=== PATIENT | male | born 1990 | race Caucasian/White ===

== ENCOUNTER 2016-04-07 18:34 | Emergency (ER) | payer SELFPAY ==
[~2016-04-07] VITALS: Ht 175.3 cm; Wt 67.7 kg
[2016-04-07 18:43] VITALS: TEMP 37; Ht 175.3 cm; Wt 67.7 kg
[2016-04-07 19:12] VITALS: O2SAT 97
[2016-04-07 19:31] LABS: BASO % 0.1 %; BASO ABS # 0.01 K/uL (0-0.2); COMPLETE YES; EOS % 2.8 %; HEMATOCRIT 46.5 % (42-52); IG% 0.1 %; LYMPH % 19.9 %; LYMPH ABS # 1.44 K/uL (1.2-3.4); MEAN CORPUSCULAR HEMOGLOBIN 30.2 pg (25-34); MEAN CORPUSCULAR HGB CONC 35.5 g/dl (32-36); MEAN PLATELET VOLUME 10.7 fL (7.4-10.4); MONO % 8.7 %; NEUT % 68.4 %; PLATELET COUNT 221 K/uL (130-400); RED BLOOD COUNT 5.47 M/uL (4.7-6.1); WHITE BLOOD COUNT 7.22 K/uL (4.8-10.8)
[2016-04-07 19:47] LABS: BLOOD UREA NITROGEN 15 mg/dl (7-18); BUN/CREATININE RATIO 14.6 (10-20); CALCIUM 9.1 mg/dl (8.5-10.1); CARBON DIOXIDE 28 mmol/L (21-32); CHLORIDE 105 mmol/L (98-107); GLUCOSE 102 mg/dl (70-99); POTASSIUM 3.4 mmol/L (3.5-5.1); SODIUM 142 mmol/L (136-145)
--- NOTE | 2016-04-07 20:01 | DIAGNOSTIC IMAGING REPORT ---
CHEST ONE VIEW PORTABLE CLINICAL HISTORY: Left-sided chest pain. COMPARISON STUDY: No previous studies for comparison. FINDINGS: No pneumothorax or pleural effusion is present. The patient is rotated. There is no consolidation. Cardiac size is normal. Mediastinal contours are normal. There is no evidence of pulmonary edema. IMPRESSION: No acute cardiopulmonary findings. Electronically signed by: Dereje Hemphill M.D. 04/07/2016 8:00 PM Dictated Date/Time: 04/07/2016 7:59 PM
[2016-04-07 21:45] VITALS: BP 109/72; PULSE 78; O2SAT 97
--- NOTE | 2016-04-08 00:10 | EMERGENCY ROOM VISIT NOTE ---
History Report prepared by Stephen: Arnulfo Gregory Under the Supervision of: Dr. Robert Alvarez D.O. First contact with patient: 18:53 Chief Complaint: CHEST PAIN Stated Complaint: CHEST PAIN,SOB Nursing Triage Summary: c/o SOB. reports chest pain last night with SOB. difficulty with deep breathing History of Present Illness The patient is a 25 year old male who presents to the Emergency Room with complaints of waxing and waning left sided chest pain beginning one day prior to arrival. He currently rates his discomfort as a 6/10 in severity. The patient associates shortness of breath and chest pain that radiates to his back with today's symptoms. He notes deep breathing and movement worsens his symptoms. The patient states the chest pain began last night with shortness of breath, while he was sitting on the couch watching TV. He notes it continued through the night and into today, however, the pain has decreased some. The patient states he took ibuprofen prior to coming to the ED today. He also associates a rash on his abdomen that he has been treating with antibiotic ointment for the past several days. The patient denies a history of heart problems, blood clots, recent surgeries, recent long travel, being a smoker, and history of sudden at a young age in his family. Also denies diabetes , hypertension, and hyperlipidemia. Pt denies headache, change in vision, cough , runny nose, fevers, nausea, vomiting, diarrhea, pain with urination, and melena. Source of History: patient Onset: one day C[employer] Position: chest (left) Symptom Intensity: 6/10 Timing: waxes/wanes Modifying Factors (Worsening): breathing (deep), movement Associated Symptoms: + SOB, + back pain (chest pain radiates to back), + chest pain Review of Systems See HPI for pertinent positives & negatives. A total of 10 systems reviewed and were otherwise negative. Past Medical & Surgical Medical Problems: (1) No pertinent past medical history Family History Patient reports no known family medical history. Social History Smoking Status: Never Smoker Alcohol Use: occasionally Occupation Status: employed Current/Historical Medications No Active Prescriptions or Reported Meds Allergies Coded Allergies: No Known Allergies (Unverified , 05/12/15) Physical Exam Vital Signs Date Time Temp Pulse Resp B/P Pulse Ox O2 Delivery O2 Flow Rate FiO2 04/07/16 21:45 78 18 109/72 97 04/07/16 20:31 71 16 97 Room Air 04/07/16 19:28 70 04/07/16 19:12 97 Room Air 04/07/16 19:00 Room Air 04/07/16 18:43 37.0 89 17 127/88 97 Room Air Physical Exam GENERAL: sitting up in bed, alert, well appearing, well nourished, no distress, non-toxic EYE EXAM: normal conjunctiva OROPHARYNX: no exudate, no erythema, lips, buccal mucosa, and tongue normal and mucous membranes are moist NECK: supple, no nuchal rigidity, no adenopathy, non-tender LUNGS: Clear to auscultation. Normal chest wall mechanics HEART: no murmurs, S1 normal and S2 normal ABDOMEN: abdomen soft, non-tender, normo-active bowel sounds, no pulsatile masses, no rebound or guarding. BACK: Back is symmetrical on inspection and there is no deformity, no midline tenderness, no CVA tenderness. SKIN: no rashes and no bruising UPPER EXTREMITIES: upper extremities are grossly normal. Radial pulses equal bilaterally. LOWER EXTREMITIES: No pitting edema. NEURO EXAM: Normal sensorium, cranial nerves II-XII grossly intact, normal speech, no gross weakness of arms, no gross weakness of legs. Medical Decision & Procedures ER Provider Diagnostic Interpretation: Xray results per the radiologist and my interpretation. Other results have been interpreted by the radiologist and reviewed by me. CHEST ONE VIEW PORTABLE CLINICAL HISTORY: Left-sided chest pain. COMPARISON STUDY: No previous studies for comparison. FINDINGS: No pneumothorax or pleural effusion is present. The patient is rotated. There is no consolidation. Cardiac size is normal. Mediastinal contours are normal. There is no evidence of pulmonary edema. IMPRESSION: No acute cardiopulmonary findings. Electronically signed by: Dereje Hemphill M.D. 04/07/2016 8:00 PM Laboratory Results 04/07/16 18:35 Red Blood Count 5.47, Mean Corpuscular Volume 85.0, Mean Corpuscular Hemoglobin 30.2, Mean Corpuscular Hemoglobin Concent 35.5, Mean Platelet Volume 10.7, Neutrophils (%) (Auto) 68.4, Lymphocytes (%) (Auto) 19.9, Monocytes (%) (Auto) 8.7, Eosinophils (%) (Auto) 2.8, Basophils (%) (Auto) 0.1, Neutrophils # (Auto) 4.93, Lymphocytes # (Auto) 1.44, Monocytes # (Auto) 0.63, Eosinophils # (Auto) 0.20, Basophils # (Auto) 0.01 04/07/16 18:35 Test 04/07/16 18:35 White Blood Count 7.22 K/uL (4.8-10.8) Red Blood Count 5.47 M/uL (4.7-6.1) Hemoglobin 16.5 g/dL (14.0-18.0) Hematocrit 46.5 % (42-52) Mean Corpuscular Volume 85.0 fL (80-100) Mean Corpuscular Hemoglobin 30.2 pg (25-34) Mean Corpuscular Hemoglobin Concent 35.5 g/dl (32-36) Platelet Count 221 K/uL (130-400) Mean Platelet Volume 10.7 fL (7.4-10.4) Neutrophils (%) (Auto) 68.4 % Lymphocytes (%) (Auto) 19.9 % Monocytes (%) (Auto) 8.7 % Eosinophils (%) (Auto) 2.8 % Basophils (%) (Auto) 0.1 % Neutrophils # (Auto) 4.93 K/uL (1.4-6.5) Lymphocytes # (Auto) 1.44 K/uL (1.2-3.4) Monocytes # (Auto) 0.63 K/uL (0.11-0.59) Eosinophils # (Auto) 0.20 K/uL (0-0.5) Basophils # (Auto) 0.01 K/uL (0-0.2) RDW Standard Deviation 40.1 fL (36.4-46.3) RDW Coefficient of Variation 12.9 % (11.5-14.5) Immature Granulocyte % (Auto) 0.1 % Immature Granulocyte # (Auto) 0.01 K/uL (0.00-0.02) D-Dimer 210 ug/L FEU (0-500) Anion Gap 9.0 mmol/L (3-11) Est Creatinine Clear Calc Drug Dose 107.2 ml/min Estimated GFR () 119.9 Estimated GFR (Non- 103.4 BUN/Creatinine Ratio 14.6 (10-20) Calcium Level 9.1 mg/dl (8.5-10.1) Troponin I < 0.015 ng/ml (0-0.045) Laboratory results per my review. ECG Indication: chest pain Rate (beats per minute): 84 Rhythm: sinus rhythm Findings: no ectopy, other (normal axis) ED Course ED COURSE: Vital signs were reviewed and showed normal vitals. The patients medical record was reviewed The above diagnostic studies were performed and reviewed. ED treatments and interventions as stated above. 0: The patient was evaluated in room C2B. A complete history and physical examination was performed. 2107: Upon reevaluation, the patient is doing well.I discussed my findings with the patient and he understands and agrees with the treatment plan. Based on the patients age, coexisting illnesses, exam and lab findings the decision to treat as an outpatient was made. The patient remained stable while under my care. The patient appeared well at the time of discharge. Medical Decision Differential diagnoses includes but is not limited to acute coronary syndrome, myocardial infarction, pericarditis, pulmonary embolus, aortic dissection, pneumonia, pneumothorax, musculoskeletal, shingles, esophageal. Patient is a 25-year-old male who presents the ER for left-sided chest pain which is been present since last night. He notes that is worse with twisting turning bending of breathing. He is a low risk for PEs. No cardiac risk factors. EKG was unremarkable. Chest x-ray was unremarkable. CBC along with BMP and d-dimer unremarkable. Troponin was negative. With his history of favor this is likely muscle skeletal especially with unremarkable EKG and negative d-dimer and troponin with chest pain that has been present for greater than 8 hours. He is instructed take Motrin Tylenol as needed and follow-up as an outpatient with PCP. Discussed with Pt concerning signs and symptoms to watch out for. Pt was instructed to follow up with their PCP and discussed with the patient their option to return to the ED at anytime for persistent or worsening symptoms. The appropriate anticipatory guidance and out-patient management, including indications for return to the emergency department, were explained at length to the patient and understood. Impression Primary Impression: Left sided chest pain Scribe Attestation The scribe's documentation has been prepared under my direction and personally reviewed by me in its entirety. I confirm that the note above accurately reflects all work, treatment, procedures, and medical decision making performed by me. Departure Information Dispostion Home / Self-Care Prescriptions No Active Prescriptions or Reported Meds Referrals No Doctor, Assigned (PCP) Forms HOME CARE DOCUMENTATION FORM, IMPORTANT VISIT INFORMATION Patient Instructions Chest Pain - [facility], [facility] Additional Instructions Please follow up with your primary care doctor with in the next 24 hours. Any worsening of your symptoms, please return to the ED immediately. This includes fevers greater than 100.4, passing out, worsening chest pain, coughing up blood , or any other concerning signs or symptoms from your standpoint. Please take Motrin Tylenol as needed for pain. Please excuse the patient as he was seen in the ER on 04/07/2016 from work.
== END 2016-04-07 21:47 | disposition home or self-care (01) ==
LOC: C.EDB 18:34 → C.EDC 21:47
DX: R07.9 Chest pain, unspecified (principal)

== ENCOUNTER 2017-03-22 21:31 | Emergency (ER) | payer BC ==
[~2017-03-22] VITALS: Ht 175.3 cm; Wt 55.5 kg
[2017-03-22 21:42] VITALS: BP 131/77; PULSE 97; TEMP 36.7; O2SAT 99; Ht 175.3 cm; Wt 55.5 kg
[2017-03-22] MEDS ORDERED: BACITRACIN OINT 15 GM TUBE EXT ONE (22:00)
[2017-03-22] MEDS ORDERED: SEPTRA DS HOME PACK 1 EA VIAL PO ONE (22:00)
[2017-03-22] MEDS ORDERED: CEPHALEXIN 500MG HOME PACK 1 EA BTL PO ONE (22:00)
[2017-03-22] MEDS ORDERED: SULF800T23 PO ×2 (22:03→22:12)
[2017-03-22] MEDS ORDERED: CEPH500C PO ×2 (22:03→22:12)
--- NOTE | 2017-03-24 00:06 | EMERGENCY ROOM VISIT NOTE ---
History First contact with patient: 21:47 Chief Complaint: RASH Stated Complaint: RASH ON STOMACH History of Present Illness The patient is a 26 year old male who presents to the Emergency Room with complaints of rash on his lower abdomen that has been intermittently occurring for the past one to 2 years. The patient evidently has a past history of large ureteral calculi, and required an open abdominal surgery 9 years ago to retrieve obstructing stones. The patient has not had persisting or stones, but states that every now and then his skin around the wound will become red and sore. The patient states most of the time this is across his pant line and belt buckle. The patient is required to wear specific pants and belt as part of his work uniform. He states over the past one to 2 days she has had a recurrence of his symptoms. He has not had drainage or discharge. No fever or chills. He rates his discomfort a 4/10. He has not taken anything over-the- counter. Review of Systems More than 10 systems were reviewed and otherwise negative with the exception of history of present illness. Past Medical/Surgical History Medical Problems: (1) No pertinent past medical history Family History Patient reports no known family medical history. Social History Smoking Status: Never Smoker Alcohol Use: occasionally Occupation Status: employed Current/Historical Medications Scheduled Cephalexin Monohydrate (Keflex), 500 MG PO TID Sulfamethoxazole-Trimethoprim (Bactrim Ds 800MG/160MG), 1 TAB PO BID Physical Exam Vital Signs Date Time Temp Pulse Resp B/P (MAP) Pulse Ox O2 Delivery O2 Flow Rate FiO2 03/22/17 21:42 36.7 97 18 131/77 99 Room Air Physical Exam VITALS: Vitals are noted on the nurse's note and reviewed by myself. Vital signs stable. GENERAL: Well-developed, well-nourished, white male, who is in no acute distress and resting comfortably. Patient is cooperative HEART: Regular rate and rhythm without murmurs gallops or rubs. LUNGS: Clear to auscultation bilaterally without wheezes, rales or rhonchi. No retractions or accessory muscle use. ABDOMEN: Positive normal bowel sounds x 4. Soft, nontender, without masses or organomegaly. No guarding or rebound tenderness. There is erythema and edema across the very lower aspect of the abdomen in the suprapubic region. There is a vertical well-healed surgical incision through this area. The erythema and edema appears consistent with cellulitis, roughly measuring 7 x 5 cm in dimension. There is no distinct abscess or drainage for culture. MUSCULOSKELETAL: No muscle atrophy, erythema, or edema noted. Full range of motion without joint tenderness in all extremities. Medical Decision & Procedures Medications Administered Medications (Trade) Dose Ordered Sig/Cain Route Start Time Stop Time Status Last Admin Dose Admin Trimethoprim/ Sulfamethoxazole (Sulfameth/ Trimeth Ds 800/ 160MG Home Pack) 1 homepack UD ONCE PO 03/22/17 22:00 03/22/17 22:01 DC 03/22/17 22:11 1 HOMEPACK Cephalexin Monohydrate (Keflex 500MG Home Pack) 1 homepack NOW ONCE PO 03/22/17 22:00 03/22/17 22:01 DC 03/22/17 22:11 1 HOMEPACK Bacitracin (Bacitracin Oint) 1 appln NOW ONCE EXT 03/22/17 22:00 03/22/17 22:01 DC 03/22/17 22:10 1 APPLN ED Course Physical exam and history were performed. Nursing notes, EMR, and Medication List were personally reviewed. Patient appears to have an abdominal wall cellulitis in the very low abdomen roughly in the belt line. He likely has some excoriation from his work uniform that is controlled bleeding to this, causing an acute cellulitis. He does not seem to have an abscess at this time, and there is no drainage or discharge otherwise. The patient will be started on a course of Bactrim and Keflex. His first doses were provided here in the department. I do have concern regarding the anatomic location of the infection, as it lies around a previous surgical incision. I recommended the patient follow up with his surgeon for a recheck, and if he is not able to do that, he can follow with general surgery locally. I do not feel that he has a deep infection at this time, but this was discussed as a possibility. The patient was pleased with plan and voiced understanding. He rated his discomfort a 0/10 at the time of departure. The chart was completed utilizing [employer] Voice Recognition Software. Grammatical errors, random word insertions, pronoun errors, and incomplete sentences are an occasional consequence of this system due to software limitations, ambient noise, and hardware issues. Any formal questions or concerns about the content, text, or information contained within the body of this dictation should be directly addressed to the provider for clarification. . Medical Decision Differential diagnosis: Etiologies such as cellulitis, abscess, MRSA infection, DVT, necrotizing fasciitis, dermatitis, drug eruption, as well as others were entertained.. Impression Primary Impression: Abdominal wall cellulitis Departure Information Dispostion Home / Self-Care Condition GOOD Prescriptions Cephalexin Monohydrate (Keflex) 500 Mg Cap 500 MG PO TID for 9 Days, #27 CAP . Prov: Tal Rudd PA-C 03/22/17 Sulfamethoxazole-Trimethoprim (Bactrim Ds 800MG/160MG) 1 Tab Tab 1 TAB PO BID for 9 Days, #18 TAB . Prov: Tal Rudd PA-C 03/22/17 Referrals Faisal Cardoza M.D. Forms HOME CARE DOCUMENTATION FORM, IMPORTANT VISIT INFORMATION Patient Instructions [facility] Additional Instructions You were seen and evaluated today on an emergency basis only. This is not a substitute for, or an effort to provide, complete comprehensive medical care. It is not possible to recognize and treat all injuries or illnesses in a single emergency department visit. For this reason it is recommended that you followup with your primary care physician or general surgery, Dr. Cardoza's office, for recheck next week. Call to make an appointment on Friday. For baseline pain relief you may alternate ibuprofen and acetaminophen every 4 hours for pain control. Take 600 mg ibuprofen (Advil) and then 4 hours later take 1000 mg acetaminophen (Tylenol). Do not take more than 3000 mg acetaminophen in a single day. Trimethoprim-Sulfamethoxazole(Bactrim DS): Take one pill twice daily for 10 days for your skin infection. All antibiotics can cause diarrhea. If this occurs and you feel worse or it does not resolve in 1-2 days follow up with your doctor or return to the Emergency Department as this could be signs of serious underlying problems. Any medication can cause an allergic reaction, stop the pills immediately and return to the ER for rash, hives, breathing difficulties, or swelling. Cephalexin(Keflex) 500mg: Take one pill 3 times daily for 10 days for your skin infection. All antibiotics can cause diarrhea. If this occurs and you feel worse or it does not resolve in 1-2 days follow up with your doctor or return to the Emergency Department as this could be signs of serious underlying problems. Any medication can cause an allergic reaction, stop the pills immediately and return to the ER for rash, hives, breathing difficulties, or swelling. Apply bacitracin antibiotic ointment twice daily for the next 5-7 days You are welcome to return to the emergency department anytime with new, worsening, or concerning symptoms.
== END 2017-03-22 22:22 | disposition home or self-care (01) ==
LOC: C.EDB 21:32 → C.EDD 22:22
DX: L53.9 Erythematous condition, unspecified (principal); R19.09 Other intra-abdominal and pelvic swelling, mass and lump; Z87.442 Personal history of urinary calculi; Z98.890 Other specified postprocedural states

== ENCOUNTER 2022-06-11 04:59 | Inpatient (IN) ==
[2022-06-11] MEDS ORDERED: ONDANSETRON INJ 2 MG/ML 2 ML VIAL IV STA ×2 (06:33→09:34)
[2022-06-11] MEDS ORDERED: SODIUM CHLORIDE 0.9% 1000ML 1,000 ML IV ONE ×2 (06:33→10:30)
[2022-06-11] MEDS ORDERED: ACETAMINOPHEN 1,000 MG/100 ML VIAL IV STA (06:36)
--- NOTE | 2022-06-11 06:38 | Emergency Department Note ---
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 are seen. The cardiomediastinal silhouette is normal. The chace gs are clear. No evidence of pleural effusion or pneumothorax. IMPRESSION: No acute abnormalities and in particular no radiographic evidence of pneumonia. ACT 112: Negative or not required by law. Electronically signed by: Sukhi Real M.D. 06/11/2022 7:42 AM Abdomen/Pelvis CT 06/11/22 06:32 CT abd pelvis IV con only CLINICAL HISTORY: abd pain, N/V TECHNIQUE: Helical axial images of the abdomen and pelvis were obtained and displayed. Automated dose lowering techniques and/or adjustment according to patient size were utilized for this exam. This exam was performed with intravenous contrast. CT DOSE: 1033.52 mGy.cm COMPARISON: None available at the time of this dictation. FINDINGS: Lower chest: Bibasilar atelectasis versus scarring is seen. Liver: Unremarkable. No focal lesions are seen. Gallbladder and biliary tree: No calcified gallstones. Normal caliber wall. No intra- or extrahepatic biliary ductal dilation. Pancreas: Unremarkable, no focal lesions. Spleen: Unremarkable. Adrenals: Unremarkable. Kidneys and ureters: Prominent left hydronephrosis and hydroureter is seen. Multiple stones are noted in the distal ureter however no frankly obstructive stone is definitely seen. Nonobstructive stones are also seen in the left collecting system. Bladder: Unremarkable. Reproductive organs: Unremarkable. Bowel: The appendix is normal. A small hiatal hernia is seen. A duodenal diverticulum is seen. Lymph nodes Retroperitoneal: Unremarkable. Pelvic: Unremarkable. Mesenteric: Unremarkable. Peritoneum: Normal. Vessels: Unremarkable. Abdominal wall: Unremarkable. Bones: Unremarkable. IMPRESSION: No acute abnormality to explain diffuse abdominal pain, in particular no evidence of bowel obstruction or appendicitis. Left hydronephrosis and hydroureter appear chronic with multiple stones which do not appear definitely obstructive. Correlation with outside imaging, if available, is recommended. Additional findings are as above. ACT 112: Negative or not required by law. Electronically signed by: Sukhi Real M.D. 06/11/2022 7:[address] 06/11/22 06:33 CT head/brain wo con CLINICAL HISTORY: 32 years-old Male with frontal OTERO/sinus pressure. Acute headache TECHNIQUE: Multiple axial CT images of the head were obtained without contrast. A dose lowering technique was utilized adhering to the principles of ALARA. COMPARISON: 06/28/2011 FINDINGS: No acute intracranial hemorrhage, midline shift, intracranial mass, hydrocephalus, territorial ischemia or abnormal extra-axial collection. Calcifications of the falx cerebri. The calvarium is intact. Mastoid air cells are generally clear. Mild mucosal thickening of the ethmoid air cells and inferior right frontal sinus with partial opacification of the nasal turbinates. Left nephrolithiasis noted on the tomogram. IMPRESSION: 1. No acute intracranial abnormality. 2. Mild mucosal thickening of the paranasal sinuses. ACT 112: Negative or not required by law. The above report was generated using voice recognition software. It may contain grammatical, syntax or spelling errors. Electronically signed by: Xiang Zamudio M.D. 06/11/2022 7:48 AM Discharge Plan Visit Data Chief Complaint: Flu Like Symptoms Stated Complaint: COUGH ON/OFF,VOMITING,HOT/COLD,SHAKING,SINUS ED Provider: Faisal Harris Discharge Problem: Neutropenia Patient Disposition: Admitted As Inpatient Discharge Instructions Interventions: ED Discharge Assessment Last Done: 06/11/22 11:25 Forms Stand Alone Forms: NI Prescriptions Prescriptions: No Action penicillin V potassium 500 mg tablet 500 mg PO TID 10 Days Qty: 30 0RF Rx Instructions: Was filled 06/03/2022. Patient is not taking med as instructed. Mucinex Max 1 tab PO DIRECTED PRN (Reason: .flu symptoms) Referrals Referrals: PCP,NO [Primary Care Provider] - Neutropenia Qualifiers: Neutropenia type: unspecified Qualified Code(s): D70.9 - Neutropenia, unspecified
[2022-06-11 06:41] LABS: Appearance Urine Clear (Clear); Bacteria Urine Automated Negative (Negative); Bilirubin Urine Negative (Negative); Blood Urine Trace (Negative); Cast Urine Automated 0 /lpf (0-5); Color Urine Yellow; Glucose Urine UA Negative (Negative); Ketones Urine Negative (Negative); Leukocyte Esterase Urine Negative (Negative); Nitrite Urine Negative (Negative); Protein Urine Negative (Negative); RBC Urine Automated 0-4 /hpf (0-4); Specific Gravity Urine 1.011 (1.000-1.030); Urobilinogen Urine Positive (Negative); WBC Urine Automated 0 /hpf (0-5)
[2022-06-11 06:42] LABS: Hematocrit (blood only) 42.8 % (42.0-52.0); Hemoglobin 15.5 g/dl (14.0-18.0); Mean Corpuscular Hemoglobin 29.8 pg (25.0-34.0); Mean Corpuscular Hgb Conc 36.2 g/dL (32.0-36.0); Mean Corpuscular Volume 82.1 fL (80.0-100.0); Mean Platelet Volume 10.2 fL (9.4-12.4); Platelet Count 281 K/uL (130-400); RDW Coefficient of Variation 11.9 % (11.5-14.5); RDW Standard Deviation 36.3 fL (36.4-46.3); Red Blood Count 5.21 M/uL (4.70-6.10); White Blood Count 1.92 K/ul (4.8-10.8)
[2022-06-11 06:54] LABS: Albumin Globulin Ratio 1.2 (0.9-2); Albumin Level 3.7 gm/dl (3.4-5.0); BUN Creatinine Ratio 13.3 (10-20); Bilirubin,Total 0.9 mg/dl (0.2-1.0); Calcium 8.9 mg/dl (8.6-10.3); Creatinine Clr Calc Pharmacy 140.1 ml/min; Est GFR (African American) 139.7 ml/min; Est GFR (Non-African American) 120.5 ml/min; Globulin 3.2 gm/dl (2.5-4.0); Potassium 3.5 mmol/L (3.5-5.1); Total Protein 6.9 gm/dl (6.0-8.3)
[2022-06-11] MEDS ORDERED: OPTIRAY 350 100ml IV ONE (07:35)
--- NOTE | 2022-06-11 07:42 | CT Scan Report ---
CT abd pelvis IV con only CLINICAL HISTORY: abd pain, N/V TECHNIQUE: Helical axial images of the abdomen and pelvis were obtained and displayed. Automated dose lowering techniques and/or adjustment according to patient size were utilized for this exam. This e xam was performed with intravenous contrast. CT DOSE: 1033.52 mGy.cm COMPARISON: None available at the time of this dictation. FINDINGS: Lower chest: Bibasilar atelectasis versus scarring is seen. Liver: Unremarkable. No focal lesions are seen. Gallbladder and biliary tree: No calcified gallstones. Normal caliber wall. No intra- or extrahepatic biliary ductal dilation. Pancreas: Unremarkable, no focal lesions. Spleen: Unremarkable. Adrenals: Unremarkable. Kidneys and ureters: Prominent left hydronephrosis and hydroureter is seen. Multiple stones are noted in the distal ureter however no frankly obstructive stone is definitely seen. Nonobstructive stones are also seen in the left collecting system. Bladder: Unremarkable. Reproductive organs: Unremarkable. Bowel: The appendix is normal. A small hiatal hernia is seen. A duodenal diverticulum is seen. Lymph nodes Retroperitoneal: Unremarkable. Pelvic: Unremarkable. Mesenteric: Unremarkable. Peritoneum: Normal. Vessels: Unremarkable. Abdominal wall: Unremarkable. Bones: Unremarkable. IMPRESSION: No acute abnormality to explain diffuse abdominal pain, in particular no evidence of bowel obstructio n or appendicitis. Left hydronephrosis and hydroureter appear chronic with multiple stones which do n ot appear definitely obstructive. Correlation with outside imaging, if available, is recommended. Add itional findings are as above. ACT 112: Negative or not required by law. Electronically signed by: Sukhi Real M.D. 06/11/2022 7:40 AM
--- NOTE | 2022-06-11 07:43 | XRay Report ---
XR chest 1V not portable CLINICAL HISTORY: cough fever TECHNIQUE: Single frontal radiograph of the chest was obtained. Comparison: Comparison is made to chest radiograph 04/07/2016 FINDINGS: No lines and tubes are seen. The cardiomediastinal silhouette is normal. The lungs are clear. No evid ence of pleural effusion or pneumothorax. IMPRESSION: No acute abnormalities and in particular no radiographic evidence of pneumonia. ACT 112: Negative or not required by law. Electronically signed by: Sukhi Real M.D. 06/11/2022 7:42 AM
--- NOTE | 2022-06-11 07:49 | CT Scan Report ---
CT head/brain wo con CLINICAL HISTORY: 32 years-old Male with frontal OTERO/sinus pressure. Acute headache TECHNIQUE: Multiple axial CT images of the head were obtained without contrast. A dose lowering tech nique was utilized adhering to the principles of ALARA. COMPARISON: 06/28/2011 FINDINGS: No acute intracranial hemorrhage, midline shift, intracranial mass, hydrocephalus, territorial ischem ia or abnormal extra-axial collection. Calcifications of the falx cerebri. The calvarium is intact. Mastoid air cells are generally clear. Mild mucosal thickening of the ethmo id air cells and inferior right frontal sinus with partial opacification of the nasal turbinates. Lef t nephrolithiasis noted on the tomogram. IMPRESSION: 1. No acute intracranial abnormality. 2. Mild mucosal thickening of the paranasal sinuses. ACT 112: Negative or not required by law. The above report was generated using voice recognition software. It may contain grammatical, syntax o r spelling errors. Electronically signed by: Xiang Zamudio M.D. 06/11/2022 7:48 AM
[2022-06-11 08:03] LABS: Troponin I High Sensitivity 2.4 pg/ml (0-20)
[2022-06-11 08:18] LABS: ALC (manual) 0.56 K/uL (1.2-3.4); ANC (manual) 0.08 K/uL (1.4-6.5); Basophils # (manual) 0.02 K/uL (0-0.2); Basophils % (manual) 1 %; Blast # (manual) 0.02 K/uL (0-0); Blast Cells % (manual) 1 %; Eosinophils # (manual) 0.08 K/uL (0-0.50); Eosinophils % (manual) 4 %; Giant Platelets 1+; Lymphocytes # (manual) 0.33 K/uL (1.2-3.4); Lymphocytes % (manual) 17 %; Monocytes # (manual) 1.17 K/uL (0.11-0.59); Monocytes % (manual) 61 %; Neutrophils # (manual) 0.08 K/uL (1.40-6.50); Neutrophils % (manual) 4 %; Reactive Lymphocytes # (manual) 0.23 K/uL; Reactive Lymphocytes % (manual) 12 %
[2022-06-11 08:38] LABS: Adenovirus PCR Not Detected (NotDetected); Bordetella parapertussis PCR Not Detected (NotDetected); Bordetella pertussis PCR Not Detected (NotDetected); Chlamydia pneumoniae PCR Not Detected (NotDetected); Coronavirus 229E PCR Not Detected (NotDetected); Coronavirus HKU1 PCR Not Detected (NotDetected); Coronavirus NL63 PCR Not Detected (NotDetected); Coronavirus OC43PCR Not Detected (NotDetected); Human Metapneumovirus PCR Not Detected (NotDetected); Influenza A PCR Not Detected (NotDetected); Influenza B PCR Not Detected (NotDetected); Mycoplasma pneumoniae PCR Not Detected (NotDetected); Parainfluenza Virus 1 PCR Not Detected (NotDetected); Parainfluenza Virus 2 PCR Not Detected (NotDetected); Parainfluenza Virus 3 PCR Not Detected (NotDetected); Parainfluenza Virus 4 PCR Not Detected (NotDetected); Respiratory Syncytial VirusPCR Not Detected (NotDetected); Rhinovirus/Enterovirus PCR Not Detected (NotDetected)
[2022-06-11 08:41] LABS: Lyme Ab IgG w/WB Rflx Negative (Negative); Lyme Ab IgM w/WB Rflx Negative (Negative)
[2022-06-11 09:10] LABS: Coronavirus CoV-2 (COVID19)PCR DETECTED (NotDetected)
[2022-06-11 09:59] LABS: Influenza A virus by PCR Negative (Neg); Influenza B virus by PCR Negative (Neg); RSV by PCR Negative (Neg)
[2022-06-11 10:25] LABS: SARS CoV2 RNA(COVID-19) Ceph POSITIVE (Negative)
[2022-06-11] MEDS ORDERED: CEFEPIME 2,000 MG/20 ML VIAL IV STA (10:29)
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
--- NOTE | 2022-06-11 10:55 | Electrocardiogram Report ---
Test Reason : Blood Pressure : / mmHG Vent. Rate : 085 BPM Atrial Rate : 085 BPM P-R Int : 114 ms QRS Dur : 086 ms QT Int : 354 ms P-R-T Axes : 025 036 014 degrees QTc Int : 421 ms Poor data quality, interpretation may be adversely affected Normal sinus rhythm Normal ECG When compared with ECG of 07-APR-2016 18:38, No significant change was found Confirmed by Willard Basilio ([id number]) on 06/11/2022 10:54:51 AM Referred By: REFERRED SELF Confirmed By:Damián Basilio
[2022-06-11] MEDS ORDERED: diphenhydrAMINE 50 MG/ML VIAL IV STA (11:23)
[2022-06-11] MEDS ORDERED: METOCLOPRAMIDE HCL INJ 5 MG/ML 2 ML VIAL IV STA (11:23)
[2022-06-11] MEDS ORDERED: ACETAMINOPHEN 325 MG TAB PO PRN (12:56)
[2022-06-11] MEDS ORDERED: CEFEPIME 1,000 MG in SYRINGE 0 ML IV SCH (12:56)
[2022-06-11] MEDS ORDERED: ONDANSETRON INJ 2 MG/ML 2 ML VIAL IV PRN (12:56)
[2022-06-11] MEDS ORDERED: SODIUM CHLORIDE 0.9% 1000ML 1,000 ML IV SCH (12:56)
[2022-06-11] MEDS: SODIUM CHLORIDE 0.9% 1000ML 1,000 ML IV SCH ×2 (12:58→21:31)
[2022-06-11] MEDS ORDERED: BENZONATATE 100 MG CAPSULE PO PRN (16:03)
[2022-06-11] MEDS: CEFEPIME 2,000 MG in SYRINGE 0 ML IV SCH (17:25)
[2022-06-11] MEDS: guaiFENesin 600 MG TABCR PO SCH (19:51)
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
[2022-06-12] MEDS: CEFEPIME 2,000 MG in SYRINGE 0 ML IV SCH ×3 (02:23→18:52)
[2022-06-12] MEDS: SODIUM CHLORIDE 0.9% 1000ML 1,000 ML IV SCH ×2 (05:43→18:52)
[2022-06-12 09:14] LABS: BUN Creatinine Ratio 7.8 (10-20); Calcium 8.5 mg/dl (8.6-10.3); Creatinine Clr Calc Pharmacy 136.5 ml/min; Est GFR (African American) 138.2 ml/min; Est GFR (Non-African American) 119.2 ml/min; Immunoglobulin A 229.4 mg/dl (70-400); Immunoglobulin G 759.1 mg/dl (635-1741); Potassium 3.8 mmol/L (3.5-5.1)
[2022-06-12 09:17] LABS: Hematocrit (blood only) 40.4 % (42.0-52.0); Hemoglobin 14.2 g/dl (14.0-18.0); Mean Corpuscular Hemoglobin 29.9 pg (25.0-34.0); Mean Corpuscular Hgb Conc 35.1 g/dL (32.0-36.0); Mean Corpuscular Volume 85.1 fL (80.0-100.0); Mean Platelet Volume 10.4 fL (9.4-12.4); Platelet Count 258 K/uL (130-400); RDW Coefficient of Variation 12.5 % (11.5-14.5); RDW Standard Deviation 38.6 fL (36.4-46.3); Red Blood Count 4.75 M/uL (4.70-6.10); White Blood Count 1.41 K/ul (4.8-10.8)
[2022-06-12] MEDS: FOLIC ACID 1 MG TAB PO SCH (09:21)
[2022-06-12] MEDS: THIAMINE HCL 100 MG TAB PO SCH (09:21)
[2022-06-12] MEDS: ENOXAPARIN INJ 40 MG/0.4 ML SYR SQ SCH (09:21)
[2022-06-12] MEDS: guaiFENesin 600 MG TABCR PO SCH ×2 (09:21→20:11)
[2022-06-12] MEDS: guaiFENesin/DEXTROM SYRUP 100MG/10MG 5ML UDC PO PRN ×2 (09:23→20:10)
--- NOTE | 2022-06-12 09:29 | Hospitalist Progress Note ---
Date of Service June 12, 2022 Assessment & Plan (1) Neutropenia: Plan: Reported fever prior to arrival. Has a dental infection present and positive for covid--reports symptoms of covid ongoing for the past two weeks. Vomiting has ceased and he reports improvement and is now hungry. Remains afebrile on the cefepime. Blood cultures negative, UA clear. No clear source of infection other than dental or covid. Lyme neg, anaplasma pend but no recent tickbite. HIV pending. Will check EBV/CMV now. Flow cytometry pending. Appreciate Hematology recommendations. May consider BM biopsy later if not improved after infection receovery. Cont cefepime for now and repeat CBC with diff in am. (2) COVID-19: Plan: cont supportive care. No pneumonia or hypoxia present. (3) B12 deficiency: Plan: Low normal B12 level os 202, MMA pending. Starting empiric supplementation while awaiting results. Would repeat with PCP in few weeks. (4) Abdominal pain: Plan: nonspecific and possibly 2/2 vomiting. Unclear etiology. Resolved. (5) Sore throat: Plan: Resolved, uncertain etiology. He did complete a PCN 10 day course a few weeks ago when he was seen in the ER. Took prednisone at that time, also. (6) Tobacco use: Plan: Cessation of chewing tobacco encouraged at bedside-has been chewing since age 16, (14 years) of 1 can every [address] of the neck negative for abscess-discussed with patient. CT of the abdomen pelvis is unremarkable other than prominent left hydronephrosis and hydroureter seen, multiple stones in the distal ureter but no obstructive stone. Patient admits to having history of kidney stone in the past, removed in 2019 via basket extraction - pt denies any urinary complaints DVT prophylaxis: Lovenox CODE STATUS: Full code Dispo: Patient from home, lives with girlfriend Chinyere Gaspar DO [facility] Admission and Anticipated Discharge Date Admission Date: June 11, 2022 Subjective 32 yo M presents with neutropenia and reported fever at home along with vomiting. He has had covid sniffles for two weeks. Today he still feels the sniffles and is hungry. No further vomiting, and currently tolerating PO Denies diarrhea Denies abdominal pain Has an infected molar on the bottom left He reports chewing tobacco He feels better since yesterday Neutropenia continues to worsen Afebrile since admission on cefepime. Blood cultures negative and reviewed this with patient as well as all his imaging studies. Review of Systems Review of Systems: All systems were reviewed and negative except as indicated on subjective above. Physical Exam Physical Exam: CONSTITUTIONAL: WNWD, vitals as above, generally well-appearing, NAD EYES: normal conjunctivae, no scleral icterus, ENT: external ear and nose normal, oropharynx clear, infected lower molar on the left. NECK: trachea midline RESPIRATORY: clear to auscultation bilaterally, no crackles, rales or wheezes, normal respiratory effort CARDIOVASCULAR: regular rate and rhythm, S1 and 2 heard without murmurs, gallops or rubs, no JVD, no peripheral edema CHEST: inspection of chest was normal GASTROINTESTINAL: soft, nontender, ND, no guarding MUSCULOSKELETAL: strength 5/5 throughout, head is normocephalic and atraumatic SKIN: warm and dry NEUROLOGIC: CN 2-12 grossly intact, no sensory deficit, normal cognition, normal speech, no tremor PSYCHIATRIC: alert cooperative and oriented to person, place and time. Euthymic mood, makes good eye contact, language grossly intact, recent and remote memory grossly intact. Results & Data Results & Data Vital Signs (Past 12 Hours) Vital Signs Temp Pulse Resp BP Pulse Ox O2 Del Method 06/12/22 07:46 37.3 C 94 H 16 107/70 95 Room Air Laboratory Results Short CBC 06/12/22 Range/Units 08:16 WBC 1.41 L (4.8-10.8) K/ul Hgb 14.2 (14.0-18.0) g/dl Hct 40.4 L (42.0-52.0) % Plt Count 258 (130-400) K/uL BMP 06/12/22 08:16 Sodium 135 L Potassium 3.8 Chloride 101 Carbon Dioxide 27 BUN 6 Creatinine 0.77 Glucose 120 H Calcium 8.5 L Diagnostic Findings Soft Tissue Neck CT 06/12/22 09:00 CT soft tissue neck w con HISTORY: 32 years-old Male evaluate for abscess. Acute throat pain with dysphasia. COMPARISON: Head CT 06/11/2022 TECHNIQUE: Multiple axial CT images of the soft tissues of the neck were obtained following the intravenous ministration of 81 mL Optiray 350. A dose lowering technique was used consistent with the principals of IDRIS. FINDINGS: The imaged intracranial structures demonstrate no acute abnormality. Patent nasopharynx, oral pharynx and hypopharynx. The parapharyngeal fat planes are symmetric and well-maintained. No tonsillar enlargement, significant inflammatory change or peritonsillar abscess. The parotid, submandibular and thyroid glands are within normal limits. No pathologically enlarged lymph nodes. Lung apices are clear without pneumothorax. Subcentimeter calcified granuloma of the right upper lobe. Mastoid air cells appear generally clear. Vasculature of the neck appears to be within normal limits. Mild to moderate mucosal thickening of the paranasal sinuses, most pronounced within the ethmoid air cells with partial opacification of the right greater than left nasal turbinates. IMPRESSION: 1. No acute inflammatory changes of the neck. 2. No abscess or lymphadenopathy. 3. Mild to moderate mucosal thickening of the paranasal sinuses. ACT 112: Negative or not required by law. The above report was generated using voice recognition software. It may contain grammatical, syntax or spelling errors. Electronically signed by: Xiang Zamudio M.D. 06/12/2022 10:18 AM Medications Administered Current Inpatient Medications Acetaminophen (Acetaminophen 325 Mg Tab) 650 mg PO Q4H PRN PRN Reason: Moderate Pain (Scale 4, 5, 6) Stop: 07/11/22 12:55 Benzonatate (Benzonatate 100 Mg Capsule) 100 mg PO TID PRN PRN Reason: Cough Stop: 07/11/22 16:02 Cyanocobalamin (Cyanocobalamin (B-12) 500 Mcg Tablet) 1,000 mcg PO QAM [facility] Stop: 07/12/22 09:29 Enoxaparin Sodium (Enoxaparin Inj 40 Mg/0.4 Ml Syr) 40 mg SQ QAM [facility] Stop: 07/12/22 08:59 Last Admin: 06/12/22 09:21 Dose: 40 mg Folic Acid (Folic Acid 1 Mg Tab) 1 mg PO QAM [facility] Stop: 07/12/22 08:59 Last Admin: 06/12/22 09:21 Dose: 1 mg Guaifenesin (Guaifenesin 600 Mg Tabcr) 600 mg PO Q12 [facility] Stop: 07/11/22 20:59 Last Admin: 06/12/22 09:21 Dose: 600 mg Guaifenesin/Dextromethorphan (Guaifenesin/Dextrom Syrup 100mg/10mg 5ml Udc) 5 ml PO Q6H PRN PRN Reason: Cough Stop: 07/11/22 16:02 Last Admin: 06/12/22 09:23 Dose: 5 ml Sodium Chloride (Nss 1000ml) 1,000 mls @ 100 mls/hr IV .Q10H [facility] Stop: 07/11/22 12:14 Last Admin: 06/12/22 05:43 Dose: 100 mls/hr Cefepime HCl 2,000 mg/ Syringe 20 mls @ 5 mls/min IV Q8H [facility] Stop: 06/13/22 18:59 Last Admin: 06/12/22 02:23 Dose: 5 mls/min Ondansetron HCl (Ondansetron Inj 2 Mg/Ml 2 Ml Vial) 4 mg IV Q4H PRN PRN Reason: Nausea And Vomiting Stop: 07/11/22 12:55 Thiamine HCl (Thiamine Hcl 100 Mg Tab) 100 mg PO QAM [facility] Stop: 07/12/22 08:59 Last Admin: 06/12/22 09:21 Dose: 100 mg
[2022-06-12] MEDS ORDERED: OPTIRAY 350 100ml IV ONE (09:36)
[2022-06-12 10:04] LABS: ALC (manual) 0.58 K/uL (1.2-3.4); ANC (manual) 0.04 K/uL (1.4-6.5); Basophils # (manual) 0.01 K/uL (0-0.2); Basophils % (manual) 1 %; Eosinophils # (manual) 0.03 K/uL (0-0.50); Eosinophils % (manual) 2 %; Lymphocytes # (manual) 0.39 K/uL (1.2-3.4); Lymphocytes % (manual) 28 %; Monocytes # (manual) 0.75 K/uL (0.11-0.59); Monocytes % (manual) 53 %; Neutrophils # (manual) 0.04 K/uL (1.40-6.50); Neutrophils % (manual) 3 %; Reactive Lymphocytes # (manual) 0.18 K/uL; Reactive Lymphocytes % (manual) 13 %
[2022-06-12] MEDS: CYANOCOBALAMIN (B-12) 500 MCG TABLET PO SCH (10:16)
--- NOTE | 2022-06-12 10:20 | CT Scan Report ---
CT soft tissue neck w con HISTORY: 32 years-old Male evaluate for abscess. Acute throat pain with dysphasia. COMPARISON: Head CT 06/11/2022 TECHNIQUE: Multiple axial CT images of the soft tissues of the neck were obtained following the intra venous ministration of 81 mL Optiray 350. A dose lowering technique was used consistent with the prin cipals of IDRIS. FINDINGS: The imaged intracranial structures demonstrate no acute abnormality. Patent nasopharynx, oral pharynx and hypopharynx. The parapharyngeal fat planes are symmetric and well-maintained. No tonsillar enlar gement, significant inflammatory change or peritonsillar abscess. The parotid, submandibular and thyr oid glands are within normal limits. No pathologically enlarged lymph nodes. Lung apices are clear without pneumothorax. Subcentimeter calcified granuloma of the right upper lobe . Mastoid air cells appear generally clear. Vasculature of the neck appears to be within normal limit s. Mild to moderate mucosal thickening of the paranasal sinuses, most pronounced within the ethmoid a ir cells with partial opacification of the right greater than left nasal turbinates. IMPRESSION: 1. No acute inflammatory changes of the neck. 2. No abscess or lymphadenopathy. 3. Mild to moderate mucosal thickening of the paranasal sinuses. ACT 112: Negative or not required by law. The above report was generated using voice recognition software. It may contain grammatical, syntax o r spelling errors. Electronically signed by: Xiang Zamudio M.D. 06/12/2022 10:18 AM
[2022-06-12] MEDS ORDERED: NURSING DECISION MEDICATION ONE (15:27)
[2022-06-12] MEDS ORDERED: COUGH DROP (SUGAR FREE) LOZ 24 LOZ/1 BOX BUCCAL PRN (15:29)
[2022-06-13] MEDS: SODIUM CHLORIDE 0.9% 1000ML 1,000 ML IV SCH (02:27)
[2022-06-13] MEDS: CEFEPIME 2,000 MG in SYRINGE 0 ML IV SCH ×2 (02:27→11:20)
[2022-06-13 06:56] LABS: Hematocrit (blood only) 39.4 % (42.0-52.0); Hemoglobin 13.7 g/dl (14.0-18.0); Mean Corpuscular Hemoglobin 29.5 pg (25.0-34.0); Mean Corpuscular Hgb Conc 34.8 g/dL (32.0-36.0); Mean Corpuscular Volume 84.7 fL (80.0-100.0); Mean Platelet Volume 10.7 fL (9.4-12.4); Platelet Count 262 K/uL (130-400); RDW Coefficient of Variation 12.3 % (11.5-14.5); RDW Standard Deviation 37.9 fL (36.4-46.3); Red Blood Count 4.65 M/uL (4.70-6.10); White Blood Count 1.48 K/ul (4.8-10.8)
[2022-06-13 07:17] LABS: Albumin Level 3.3 gm/dl (3.4-5.0); Bilirubin,Total 0.7 mg/dl (0.2-1.0); Calcium 8.4 mg/dl (8.6-10.3); Potassium 3.7 mmol/L (3.5-5.1)
[2022-06-13 07:23] LABS: Albumin Globulin Ratio 1.1 (0.9-2); BUN Creatinine Ratio 10.4 (10-20); Creatinine Clr Calc Pharmacy 156.8 ml/min; Est GFR (African American) 146.3 ml/min; Est GFR (Non-African American) 126.2 ml/min; Globulin 3.1 gm/dl (2.5-4.0); Total Protein 6.4 gm/dl (6.0-8.3)
[2022-06-13 07:55] LABS: ALC (manual) 0.71 K/uL (1.2-3.4); Basophils # (manual) 0.04 K/uL (0-0.2); Blast # (manual) 0.03 K/uL (0-0); Eosinophils # (manual) 0.06 K/uL (0-0.50); Giant Platelets 1+; Lymphocytes # (manual) 0.71 K/uL (1.2-3.4); Monocytes # (manual) 0.64 K/uL (0.11-0.59); RBC Morphology Unremarkable
--- NOTE | 2022-06-13 07:58 | Hospitalist Progress Note ---
Date of Service June 13, 2022 Assessment & Plan (1) Neutropenia: Plan: Severe neutropenia persists but he continues with unremarkable hemoglobin and platelet counts and clinically is showing no signs of significant compromise. We await peripheral blood flow cytometry, methylmalonic acid levels, HIV/CMV/EBV screens though the Monospot was negative. Isolated severe neutropenia is still suggestive of an autoimmune process. In general, patients with autoimmune neutropenia do much better than their numbers suggest and may not need specific treatment to restore adequate neutrophil counts as measured by the CBC. Per Up-to-Date (regarding classic autoimmune neutropenia): Specific treatment of neutropenia is usually not required and observation with serial blood counts is the most common practice. Most patients remain free of infections and require no or minimal medical intervention. If the marrow cellularity is normal with sufficient late myeloid precursors, treatment of any kind simply to raise the ANC is not indicated. Question is whether neutropenia in the specific context of COVID19 might pose a different set of dangers and needed interventions. One anecdotal report suggest sthat this can be a relatively modest and transient phenomenon though in that case the patient did receive a single dose of G-CSF and recovered well. Crow Adames et al. Clin Case Rep. 2019; 8(12): [id number]. Published online 2019Dec 19. doi: [email or web address] Another series reported on a number of patients presenting with febrile neutropenia in the context of COVID19 though most of these patients had concom itant issues such as significant pulmonary involvement, defined hematologic or other malignancy and/or previous chemotherapy. There was a significant mortality rate among those patients though the subset who did not have a concomitant hematologic or solid malignancy did well. Practically, IR cannot proceed with bone marrow until at least 10 days haver passed from the diagnosis of COVID19. In the absence of more progressive changes in the CBC otherwise and no major new clinical issues, do not feel that we have to proceed emergently with marrow aspiration and indeed it would be preferable to wait to see if the pending studies give us any other insight that might preclude its performance. iwona Mars al. Travel Med Infect Dis. 2021- July; 47: 367007. Published online 2021Apr 30. doi: [email or web address] In terms of ongoing management, if his blood cultures remain negative it would not be unreasonable to switch him to an oral third-generation cephalosporin and consider discharge with very close monitoring. I have emphasized to him that if he is discharged we would need him to commit to immediately returning to the emergency department for any fever or other changes in status. If there is any clinical change or deterioration would consider empiric GCSF though its administration might both obscure our recognition of spontaneous recovery and al ter the morphology of the bone marrow population clouding its interpretation of the bone marrow was performed after that medication starts Plan Continued observation with, as above, consideration of transition to oral antibiotic and even discharge with close monitoring if he is completely stable otherwise Await pending methylmalonic acid, flow cytometry, and viral screens to see if we find any more specific indication of other contributors to his current neutropenia If there is clinical deterioration would consider empiric GCSF and/or procee ding to marrow aspiration and biopsy Admission and Anticipated Discharge Date Admission Date: June 11, 2022 Subjective Other than some minimal nasal stuffiness draining only clear/white material without cough, hemoptysis, purulence in his sputum or nasal drainage and without other more severe symptoms. Abdominal symptoms have resolved and he is eating well. Wonders when he can go home Physical Exam Physical Exam: Vital signs and exam are stable Results & Data Results & Data Vital Signs (Past 12 Hours) Vital Signs Temp Pulse Resp BP Pulse Ox O2 Del Method 06/12/22 22:22 37.1 C 91 H 16 124/80 95 Room Air Laboratory Results Laboratory Results - last 24 hr 06/12/22 06/12/22 06/12/22 08:16 08:16 08:16 WBC 1.41 L RBC 4.75 Hgb 14.2 Hct 40.4 L MCV 85.1 MCH 29.9 MCHC 35.1 RDW Std Deviation 38.6 RDW Coeff of Moose 12.5 Plt Count 258 MPV 10.4 Neutrophils % (Manual) 3 Lymphocytes % (Manual) 28 Reactive Lymphs % (Man) 13 Monocytes % (Manual) 53 Eosinophils % (Manual) 2 Basophils % (Manual) 1 Blast Cells % (Manual) Neutrophils # (Manual) 0.04 L Total Absolute Neuts 0.04 L* Lymphocytes # (Manual) 0.39 L Reactive Lymphs # 0.18 Total Abs Lymphocytes 0.58 L Monocytes # (Manual) 0.75 H Eosinophils # (Manual) 0.03 Basophils # (Manual) 0.01 Blast Cells # (Man) Giant Platelets RBC Morphology Sodium 135 L Potassium 3.8 Chloride 101 Carbon Dioxide 27 Anion Gap 7 BUN 6 Creatinine 0.77 Est Cr Clr Drug Dosing 136.5 Est GFR ( Amer) 138.2 Est GFR (Non-Af Amer) 119.2 BUN/Creatinine Ratio 7.8 L Glucose 120 H Calcium 8.5 L Total Bilirubin AST ALT Alkaline Phosphatase Total Protein Albumin Globulin Albumin/Globulin Ratio Methylmalonic Acid IgG 759.1 IgA 229.4 IgM 128.0 CMV IgM Ab CMV IgG Ab/TORCH EBV Capsid Ag IgG Ab EBV Capsid Ag IgM Ab EBV EA Restrict+Diffuse EBV Nuclear Antigen Ab EBV Antibody Interp Monoscreen HIV (1&2) Ag & Ab Conf Pending 06/12/22 06/13/22 06/13/22 08:16 06:11 06:11 WBC 1.48 L RBC 4.65 L Hgb 13.7 L Hct 39.4 L MCV 84.7 MCH 29.5 MCHC 34.8 RDW Std Deviation 37.9 RDW Coeff of Moose 12.3 Plt Count 262 MPV 10.7 Neutrophils % (Manual) 0 Lymphocytes % (Manual) 48 Reactive Lymphs % (Man) Monocytes % (Manual) 43 Eosinophils % (Manual) 4 Basophils % (Manual) 3 Blast Cells % (Manual) 2 Neutrophils # (Manual) 0.00 L Total Absolute Neuts 0.00 L* Lymphocytes # (Manual) 0.71 L Reactive Lymphs # Total Abs Lymphocytes 0.71 L Monocytes # (Manual) 0.64 H Eosinophils # (Manual) 0.06 Basophils # (Manual) 0.04 Blast Cells # (Man) 0.03 H Giant Platelets 1+ RBC Morphology Unremarkable Sodium 134 L Potassium 3.7 Chloride 101 Carbon Dioxide 26 Anion Gap 7 BUN 7 Creatinine 0.67 Est Cr Clr Drug Dosing 156.8 Est GFR ( Amer) 146.3 Est GFR (Non-Af Amer) 126.2 BUN/Creatinine Ratio 10.4 Glucose 106 H Calcium 8.4 L Total Bilirubin 0.7 AST 11 L ALT 14 Alkaline Phosphatase 53 Total Protein 6.4 Albumin 3.3 L Globulin 3.1 Albumin/Globulin Ratio 1.1 Methylmalonic Acid Pending IgG IgA IgM CMV IgM Ab CMV IgG Ab/TORCH EBV Capsid Ag IgG Ab EBV Capsid Ag IgM Ab EBV EA Restrict+Diffuse EBV Nuclear Antigen Ab EBV Antibody Interp Monoscreen HIV (1&2) Ag & Ab Conf 06/13/22 06/13/22 06/13/22 06:11 06:11 06:11 WBC RBC Hgb Hct MCV MCH MCHC RDW Std Deviation RDW Coeff of Moose Plt Count MPV Neutrophils % (Manual) Lymphocytes % (Manual) Reactive Lymphs % (Man) Monocytes % (Manual) Eosinophils % (Manual) Basophils % (Manual) Blast Cells % (Manual) Neutrophils # (Manual) Total Absolute Neuts Lymphocytes # (Manual) Reactive Lymphs # Total Abs Lymphocytes Monocytes # (Manual) Eosinophils # (Manual) Basophils # (Manual) Blast Cells # (Man) Giant Platelets RBC Morphology Sodium Potassium Chloride Carbon Dioxide Anion Gap BUN Creatinine Est Cr Clr Drug Dosing Est GFR ( Amer) Est GFR (Non-Af Amer) BUN/Creatinine Ratio Glucose Calcium Total Bilirubin AST ALT Alkaline Phosphatase Total Protein Albumin Globulin Albumin/Globulin Ratio Methylmalonic Acid IgG IgA IgM CMV IgM Ab Pending CMV IgG Ab/TORCH Pending EBV Capsid Ag IgG Ab Pending EBV Capsid Ag IgM Ab Pending EBV EA Restrict+Diffuse Pending EBV Nuclear Antigen Ab Pending EBV Antibody Interp Pending Monoscreen Negative HIV (1&2) Ag & Ab Conf PG Care Time/CCT Total # of Minutes Spent Total Time Spent with Patient: Total time spent is greater than 50% in coordination of care (as documented) at patient's floor/unit and/or counseling patient: C[place] [address] SUB INP/OBS CARE 1/25MIN Patient Type Established Medical Decision Making High Complexity Diagnoses Neutropenia D70.9 Neutropenia type: unspecified (1) Neutropenia Neutropenia type: unspecified Qualified Code(s): D70.9 - Neutropenia, unspecified
[2022-06-13] MEDS: guaiFENesin 600 MG TABCR PO SCH ×2 (08:38→21:30)
[2022-06-13] MEDS: THIAMINE HCL 100 MG TAB PO SCH (08:38)
[2022-06-13] MEDS: FOLIC ACID 1 MG TAB PO SCH (08:38)
[2022-06-13] MEDS: ENOXAPARIN INJ 40 MG/0.4 ML SYR SQ SCH (08:38)
[2022-06-13] MEDS: CYANOCOBALAMIN (B-12) 500 MCG TABLET PO SCH (08:38)
[2022-06-13] MEDS: guaiFENesin/DEXTROM SYRUP 100MG/10MG 5ML UDC PO PRN (08:39)
--- NOTE | 2022-06-13 10:38 | Hospitalist Progress Note ---
Date of Service June 13, 2022 Assessment & Plan (1) Neutropenia: Plan: Reported fever prior to arrival. Has a dental infection present and positive for covid--reports symptoms of covid ongoing for the past two weeks. Tolerating PO. Symptoms have resolved. Remains afebrile on the cefepime. Transition him to cefdinir. Blood cultures negative, UA clear. No clear source of infection other than dental or covid. Lyme neg, anaplasma pend but no recent tickbite. HIV negative. EBV/CMV pending with mono spot test negative. Flow cytometry pending. Appreciate Hematology recommendations. 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 No apparent underlying immunodeficiency present, and may have been incited from recent infection vs abx regimen. (2) COVID-19: Plan: cont supportive care. No pneumonia or hypoxia present. (3) B12 deficiency: Plan: Low normal B12 level os 202, MMA pending. Cont empiric supplementation while awaiting results. Would repeat with PCP in few weeks. (4) Abdominal pain: Plan: nonspecific and possibly 2/2 vomiting. Unclear etiology. Resolved. (5) Sore throat: Plan: Resolved, uncertain etiology. He did complete a PCN 10 day course a few weeks ago when he was seen in the ER. Took prednisone at that time, also. (6) Tobacco use: Plan: Cessation of chewing tobacco encouraged at bedside-has been chewing since age 16, (14 years) of 1 can every [address] of the neck negative for abscess-discussed with patient. CT of the abdomen pelvis is unremarkable other than prominent left hydronephrosis and hydroureter seen, multiple stones in the distal ureter but no obstructive stone. Patient admits to having history of kidney stone in the past, removed in 2019 via basket extraction - pt denies any urinary complaints DVT prophylaxis: Lovenox CODE STATUS: Full code Dispo: Patient from home, lives with girlfriend Chinyere Gaspar DO [facility] Hospitalist Admission and Anticipated Discharge Date Admission Date: June 13, 2022 Subjective 32 yo M presents with neutropenia and reported fever at home along with vomiting. symptoms are improved and he is feeling better ANC to zero Doing well on broad abx Review of Systems Review of Systems: All systems were reviewed and negative except as indicated on subjective above. Physical Exam Physical Exam: CONSTITUTIONAL: WNWD, vitals as above, generally well-appearing, NAD EYES: normal conjunctivae, no scleral icterus, ENT: external ear and nose normal, oropharynx clear, infected lower molar on the left. NECK: trachea midline RESPIRATORY: clear to auscultation bilaterally, no crackles, rales or wheezes, normal respiratory effort CARDIOVASCULAR: regular rate and rhythm, S1 and 2 heard without murmurs, gallops or rubs, no JVD, no peripheral edema CHEST: inspection of chest was normal GASTROINTESTINAL: soft, nontender, ND, no guarding MUSCULOSKELETAL: strength 5/5 throughout, head is normocephalic and atraumatic SKIN: warm and dry NEUROLOGIC: CN 2-12 grossly intact, no sensory deficit, normal cognition, normal speech, no tremor PSYCHIATRIC: alert cooperative and oriented to person, place and time. Euthymic mood, makes good eye contact, language grossly intact, recent and remote memory grossly intact. Results & Data Results & Data Vital Signs (Past 12 Hours) Vital Signs Temp Pulse Resp BP Pulse Ox O2 Del Method 06/13/22 09:28 Room Air 06/13/22 08:27 36.8 C 92 H 16 101/64 97 Room Air Laboratory Results Short CBC 06/13/22 Range/Units 06:11 WBC 1.48 L (4.8-10.8) K/ul Hgb 13.7 L (14.0-18.0) g/dl Hct 39.4 L (42.0-52.0) % Plt Count 262 (130-400) K/uL BMP 06/13/22 06:11 Sodium 134 L Potassium 3.7 Chloride 101 Carbon Dioxide 26 BUN 7 Creatinine 0.67 Glucose 106 H Calcium 8.4 L Liver Function 06/13/22 Range/Units 06:11 Total Bilirubin 0.7 (0.2-1.0) mg/dl AST 11 L (13-39) U/L ALT 14 (7-52) U/L Alkaline Phosphatase 53 (34-104) U/L Albumin 3.3 L (3.4-5.0) gm/dl Medications Administered Current Inpatient Medications Acetaminophen (Acetaminophen 325 Mg Tab) 650 mg PO Q4H PRN PRN Reason: Moderate Pain (Scale 4, 5, 6) Stop: 07/11/22 12:55 Last Admin: 06/12/22 18:59 Dose: 650 mg Benzonatate (Benzonatate 100 Mg Capsule) 100 mg PO TID PRN PRN Reason: Cough Stop: 07/11/22 16:02 Cyanocobalamin (Cyanocobalamin (B-12) 500 Mcg Tablet) [facility] Stop: 07/12/22 09:29 Last Admin: 06/13/22 08:38 Dose: 1,000 mcg Enoxaparin Sodium (Enoxaparin Inj 40 Mg/0.4 Ml Syr) 40 mg SQ [facility] [place] Stop: 07/12/22 08:59 Last Admin: 06/13/22 08:38 Dose: 40 mg Folic Acid (Folic Acid 1 Mg Tab) 1 mg [facility] Stop: 07/12/22 08:59 Last Admin: 06/13/22 08:38 Dose: 1 mg Guaifenesin (Guaifenesin 600 Mg Tabcr) 600 mg PO Q12 [facility] Stop: 07/11/22 20:59 Last Admin: 06/13/22 08:38 Dose: 600 mg Guaifenesin/Dextromethorphan (Guaifenesin/Dextrom Syrup 100mg/10mg 5ml Udc) 5 ml PO Q6H PRN PRN Reason: Cough Stop: 07/11/22 16:02 Last Admin: 06/13/22 08:39 Dose: 5 ml Sodium Chloride (Nss 1000ml) 1,000 mls @ 100 mls/hr IV .Q10H [facility] Stop: 07/11/22 12:14 Last Admin: 06/13/22 02:27 Dose: 100 mls/hr Cefepime HCl 2,000 mg/ Syringe 20 mls @ 5 mls/min IV Q8H [facility] Stop: 06/13/22 18:59 Last Admin: 06/13/22 02:27 Dose: 5 mls/min Menthol (Cough Drop (Sugar Free) Anastasia 24 Anastasia/1 Box) 1 anastasia BUCCAL Q1H PRN PRN Reason: THROAT IRRITATION Stop: 07/12/22 15:28 Last Admin: 06/12/22 15:42 Dose: 1 anastasia Ondansetron HCl (Ondansetron Inj 2 Mg/Ml 2 Ml Vial) 4 mg IV Q4H PRN PRN Reason: Nausea And Vomiting Stop: 07/11/22 12:55 Thiamine HCl (Thiamine Hcl 100 Mg Tab) 100 mg PO [facility] Stop: 07/12/22 08:59 Last Admin: 06/13/22 08:38 Dose: 100 mg
[2022-06-14 06:55] LABS: Hematocrit (blood only) 42.2 % (42.0-52.0); Hemoglobin 14.5 g/dl (14.0-18.0); Mean Corpuscular Hemoglobin 29.4 pg (25.0-34.0); Mean Corpuscular Hgb Conc 34.4 g/dL (32.0-36.0); Mean Corpuscular Volume 85.4 fL (80.0-100.0); Mean Platelet Volume 10.4 fL (9.4-12.4); Platelet Count 282 K/uL (130-400); RDW Coefficient of Variation 12.1 % (11.5-14.5); RDW Standard Deviation 37.5 fL (36.4-46.3); Red Blood Count 4.94 M/uL (4.70-6.10); White Blood Count 1.82 K/ul (4.8-10.8)
[2022-06-14 07:23] LABS: ALC (manual) 1.02 K/uL (1.2-3.4); ANC (manual) 0.02 K/uL (1.4-6.5); Eosinophils # (manual) 0.16 K/uL (0-0.50); Eosinophils % (manual) 9 %; Lymphocytes # (manual) 1.02 K/uL (1.2-3.4); Lymphocytes % (manual) 56 %; Monocytes # (manual) 0.62 K/uL (0.11-0.59); Monocytes % (manual) 34 %; Neutrophils # (manual) 0.02 K/uL (1.40-6.50); Neutrophils % (manual) 1 %
[2022-06-14] MEDS: THIAMINE HCL 100 MG TAB PO SCH (08:38)
[2022-06-14] MEDS: ENOXAPARIN INJ 40 MG/0.4 ML SYR SQ SCH (08:38)
[2022-06-14] MEDS: FOLIC ACID 1 MG TAB PO SCH (08:38)
[2022-06-14] MEDS: guaiFENesin 600 MG TABCR PO SCH ×2 (08:38→20:50)
[2022-06-14] MEDS ORDERED: FILGRASTIM 480 MCG/1.6 ML VIAL SC ONE (10:00)
[2022-06-14] MEDS: CEFDINIR 300 MG CAP PO SCH ×2 (10:46→20:50)
[2022-06-14] MEDS: CYANOCOBALAMIN 1000 MCG/ML VIAL IM SCH (10:46)
--- NOTE | 2022-06-14 12:28 | Hospitalist Progress Note ---
Date of Service June 14, 2022 Assessment & Plan (1) Neutropenia: Plan: Additional labs have returned showing a negative screen for HIV 1, 2 and normal levels of methylmalonic acid, the latter indicating that his B12 and folic acid are probably adequate. He continues with profound neutropenia but now only a moderate and continuing to improve lymphopenia. Hemoglobin and platelets remain essentially in normal range. While his differential shows a persistent monocytosis this is not climbing. An occasional blast cell was noted yesterday but overall there is no suggestion of an acute leukemia. LDH is normal, as above all cell counts except for the neutrophils are either normal range are only modestly decreased. Rather, the blast is more suggestive of a possible early recovery especially in conjunction with the monocytosis. Please see extensive discussion yesterday, outside of the COVID19 context is not clear that we need to intervene in an otherwise asymptomatic patient to numerically increase the neutrophils with more "routine" autoimmune neutropenia. Caveats here are that he did present with fever and at least the limited data of neutropenia and COVID19 suggests that there are subsets of patients with more significant issues. GCSF is not immunocompromising and has been effective both in the non-COVID19 setting of autoimmune neutropenia and at least anecdotally with COVID19 associated neutropenia as well. The only downsides with G-CSF would be the modest risk for side effects, predominantly bone pain, and the technical issues of clouding our ability to gauge any spontaneous recovery and potentially skewing a subsequent bone marrow towards an immature myeloid population. Particularly where the previous fever raises some concerns over his ability to combat infection, the advantage of G-CSF would be the possibility to restore neutrophils to a much better level making us more comfortable with discharge. Certainly if he responds to the G-CSF after 1-2 doses could consider discharge on oral third-generation cephalosporin and we can arrange for follow-up blood work next week. Even if he does not respond, it would not be completely unreasonable in shared decision making to discharge him with very close follow- up. I have emphasized that if he is discharged he needs to immediately return to the emergency room for any fever even if unassociated with other dramatic symptomatology Anticipating that he would probably discharged over the weekend I will ask our office to set up for some blood work and a reassessment next week. If we are not seeing sustained recovery, would plan to move to bone marrow aspiration and biopsy. Especially if we time that a week or more after any Neupogen shots are given he will be both well out from the COVID19 and probably beyond the major impact of the Neupogen on his marrow. Plan G-CSF 480 mcg given today and possibly repeated tomorrow depending on counts. Consider discharge, as detailed above, I will make provisional arrangements for close follow-up in our clinic next week I have repetitively emphasized, however, that if he is discharged she needs to immediately return to the emergency department for any even modest fever lizzie vation whether or not it is associated with other symptomatology Admission and Anticipated Discharge Date Admission Date: June 13, 2022 Subjective Feeling good today, very anxious to go home Physical Exam Physical Exam: Remains afebrile with stable vital signs. Alert and fully neurologically intact. Results & Data Results & Data Vital Signs (Past 12 Hours) Vital Signs Temp Pulse Resp BP Pulse Ox O2 Del Method 06/14/22 09:15 Room Air 06/14/22 07:56 36.4 C L 82 18 107/74 98 Room Air PG Care Time/CCT Total # of Minutes Spent Total Time Spent with Patient: Total time spent is greater than 50% in coordination of care (as documented) at patient's floor/unit and/or counseling patient: Coding Level of Care Code 06523 SUB INP/OBS CARE 03/20MIN Diagnoses Neutropenia D70.9 Neutropenia type: unspecified (1) Neutropenia Neutropenia type: unspecified Qualified Code(s): D70.9 - Neutropenia, unspecified
[2022-06-14 13:03] LABS: Epstein Barr Virus Early Ag Ab <9.00 U/mL
[2022-06-14 13:07] LABS: CMV IgM Antibody <30.00 AU/mL
--- NOTE | 2022-06-14 17:09 | Hospitalist Progress Note ---
Date of Service June 14, 2022 Assessment & Plan (1) Neutropenia: Plan: Reported fever prior to arrival. Has a dental infection present and positive for covid--reports symptoms of covid ongoing for the past two weeks. Tolerating PO. Symptoms have resolved. Remains afebrile on the cefepime. Transition him to cefdinir. Blood cultures negative, UA clear. No clear source of infection other than dental or covid. Lyme neg, anaplasma pend but no recent tickbite. HIV negative. EBV/CMV pending with mono spot test negative. Flow cytometry pending. Appreciate Hematology recommendations. 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 No apparent underlying immunodeficiency present, and may have been incited from recent infection vs abx regimen. Trial filgrastim today and repeat ANC in am. Hopeful to see some improvement and send him home. Possible bone marrow biopsy in a few weeks if further workup is needed. (2) COVID-19: Plan: cont supportive care. No pneumonia or hypoxia present. (3) B12 deficiency: Plan: Low normal B12 level os 202, MMA pending. Cont empiric supplementation while awaiting results. Would repeat with PCP in few weeks. (4) Abdominal pain: Plan: nonspecific and possibly 2/2 vomiting. Unclear etiology. Resolved. (5) Sore throat: Plan: Resolved, uncertain etiology. He did complete a PCN 10 day course a few weeks ago when he was seen in the ER. Took prednisone at that time, also. (6) Tobacco use: Plan: Cessation of chewing tobacco encouraged at bedside-has been chewing since age 16, (14 years) of 1 can every [address] of the neck negative for abscess-discussed with patient. CT of the abdomen pelvis is unremarkable other than prominent left hydronephr osis and hydroureter seen, multiple stones in the distal ureter but no obstructive stone. Patient admits to having history of kidney stone in the past, removed in 2019 via basket extraction - pt denies any urinary complaints DVT prophylaxis: Lovenox CODE STATUS: Full code Dispo: Patient from home, lives with [facility]ere [facility] Admission and Anticipated Discharge Date Admission Date: June 13, 2022 Subjective 32 yo M presents with neutropenia and reported fever at home along with vomiting. symptoms are resolved and he is feeling better ANC to 20 afebrile tolerating PO discussed case with hematology regarding autoimmune neutropenia Agreed to trial GCSF Discussed this with patient. Review of Systems Review of Systems: All systems were reviewed and negative except as indicated on subjective above. Physical Exam Physical Exam: CONSTITUTIONAL: WNWD, vitals as above, generally well-appearing, NAD EYES: normal conjunctivae, no scleral icterus, ENT: external ear and nose normal, oropharynx clear, infected lower molar on the left. NECK: trachea midline RESPIRATORY: clear to auscultation bilaterally, no crackles, rales or wheezes, normal respiratory effort CARDIOVASCULAR: regular rate and rhythm, S1 and 2 heard without murmurs, gallops or rubs, no JVD, no peripheral edema CHEST: inspection of chest was normal GASTROINTESTINAL: soft, nontender, ND, no guarding MUSCULOSKELETAL: strength 5/5 throughout, head is normocephalic and atraumatic SKIN: warm and dry NEUROLOGIC: CN 2-12 grossly intact, no sensory deficit, normal cognition, normal speech, no tremor PSYCHIATRIC: alert cooperative and oriented to person, place and time. Euthymic mood, makes good eye contact, language grossly intact, recent and remote memory grossly intact. Results & Data Results & Data Vital Signs (Past 12 Hours) Vital Signs Temp Pulse Resp BP Pulse Ox O2 Del Method 06/14/22 14:13 37.2 C 102 H 18 114/73 98 Room Air 06/14/22 09:15 Room Air 06/14/22 07:56 36.4 C L 82 18 107/74 98 Room Air Laboratory Results Short CBC 06/14/22 Range/Units 05:55 WBC 1.82 L (4.8-10.8) K/ul Hgb 14.5 (14.0-18.0) g/dl Hct 42.2 (42.0-52.0) % Plt Count 282 (130-400) K/uL Medications Administered Current Inpatient Medications Acetaminophen (Acetaminophen 325 Mg Tab) 650 mg PO Q4H PRN PRN Reason: Moderate Pain (Scale 4, 5, 6) Stop: 07/11/22 12:55 Last Admin: 06/12/22 18:59 Dose: 650 mg Benzonatate (Benzonatate 100 Mg Capsule) 100 mg PO TID PRN PRN Reason: Cough Stop: 07/11/22 16:02 Cefdinir (Cefdinir 300 Mg Cap) 300 mg PO BID SEVERINO; Protocol Stop: 06/16/22 09:44 Last Admin: 06/14/22 10:46 Dose: 300 mg Cyanocobalamin (Cyanocobalamin 1000 Mcg/Ml Vial) 1,[facility] Stop: 07/14/22 08:59 Last Admin: 06/14/22 10:46 Dose: 1,000 mcg Enoxaparin Sodium (Enoxaparin Inj 40 Mg/0.4 Ml Syr) 40 mg SQ [facility] Stop: 07/12/22 08:59 Last Admin: 06/14/22 08:38 Dose: 40 mg Folic Acid (Folic Acid 1 Mg Tab) 1 mg PO [facility] Stop: 07/12/22 08:59 Last Admin: 06/14/22 08:38 Dose: 1 mg Guaifenesin (Guaifenesin 600 Mg Tabcr) 600 mg PO Q12 [facility] Stop: 07/11/22 20:59 Last Admin: 06/14/22 08:38 Dose: 600 mg Guaifenesin/Dextromethorphan (Guaifenesin/Dextrom Syrup 100mg/10mg 5ml Udc) 5 ml PO Q6H PRN PRN Reason: Cough Stop: 07/11/22 16:02 Last Admin: 06/13/22 08:39 Dose: 5 ml Menthol (Cough Drop (Sugar Free) Anastasia 24 Anastasia/1 Box) 1 anastasia BUCCAL Q1H PRN PRN Reason: THROAT IRRITATION Stop: 07/12/22 15:28 Last Admin: 06/12/22 15:42 Dose: 1 anastasia Ondansetron HCl (Ondansetron Inj 2 Mg/Ml 2 Ml Vial) 4 mg IV Q4H PRN PRN Reason: Nausea And Vomiting Stop: 07/11/22 12:55 Thiamine HCl (Thiamine Hcl 100 Mg Tab) 100 mg PO [facility] Stop: 07/12/22 08:59 Last Admin: 06/14/22 08:38 Dose: 100 mg
[2022-06-15 07:08] LABS: Copper, Serum 111 mcg/dL (70-175); Zinc 43 mcg/dL (60-130)
[2022-06-15 07:12] LABS: Hematocrit (blood only) 41.3 % (42.0-52.0); Hemoglobin 14.3 g/dl (14.0-18.0); Mean Corpuscular Hemoglobin 29.5 pg (25.0-34.0); Mean Corpuscular Hgb Conc 34.6 g/dL (32.0-36.0); Mean Corpuscular Volume 85.3 fL (80.0-100.0); Mean Platelet Volume 10.2 fL (9.4-12.4); Platelet Count 348 K/uL (130-400); RDW Coefficient of Variation 12.2 % (11.5-14.5); RDW Standard Deviation 37.9 fL (36.4-46.3); Red Blood Count 4.84 M/uL (4.70-6.10); White Blood Count 1.82 K/ul (4.8-10.8)
[2022-06-15 07:49] LABS: ALC (manual) 0.93 K/uL (1.2-3.4); ANC (manual) 0.04 K/uL (1.4-6.5); Basophils # (manual) 0.05 K/uL (0-0.2); Basophils % (manual) 3 %; Blast # (manual) 0.04 K/uL (0-0); Blast Cells % (manual) 2 %; Eosinophils # (manual) 0.09 K/uL (0-0.50); Eosinophils % (manual) 5 %; Lymphocytes # (manual) 0.93 K/uL (1.2-3.4); Lymphocytes % (manual) 51 %; Monocytes # (manual) 0.69 K/uL (0.11-0.59); Monocytes % (manual) 38 %; Myelocytes # (manual) 0.02 K/uL (0-0); Myelocytes % (manual) 1 %; Neutrophils # (manual) 0.04 K/uL (1.40-6.50); Neutrophils % (manual) 2 %; Promyelocytes # (manual) 0.02 K/uL (0-0); Promyelocytes % (manual) 1 %
[2022-06-15] MEDS: CEFDINIR 300 MG CAP PO SCH (08:22)
[2022-06-15] MEDS: CYANOCOBALAMIN 1000 MCG/ML VIAL IM SCH (08:22)
[2022-06-15] MEDS: ENOXAPARIN INJ 40 MG/0.4 ML SYR SQ SCH (08:22)
[2022-06-15] MEDS: THIAMINE HCL 100 MG TAB PO SCH (08:22)
[2022-06-15] MEDS: FOLIC ACID 1 MG TAB PO SCH (08:22)
[2022-06-15] MEDS: guaiFENesin 600 MG TABCR PO SCH (08:22)
[2022-06-15] MEDS ORDERED: FILGRASTIM 480 MCG/1.6 ML VIAL SC STA (10:22)
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
[2022-06-16] MEDS ORDERED: CYANOCOBALAMIN (B-12) 500 MCG TABLET PO SCH (09:00)
[2022-06-19 02:11] LABS: Basophils % (manual) 3 %; Blast Cells % (manual) 2 %; Eosinophils % (manual) 4 %; Lymphocytes % (manual) 48 %; Monocytes % (manual) 43 %; Neutrophils % (manual) 0 %
== END 2022-06-15 13:30 | disposition home or self-care (01) | DRG 808 ==
LOC: 3E 04:59 → ED 04:59 → SUATTDRO 11:17 → 3E 11:25

== ENCOUNTER 2025-01-22 17:59 | Inpatient (IN) ==
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
[2025-01-22] MEDS: SODIUM CHLORIDE 0.9% 1,000 ML IV SCH (19:33)
[2025-01-22] MEDS ORDERED: ONDANSETRON INJ 2 MG/ML 2 ML VIAL IV PRN ×2 (19:35→22:04)
[2025-01-22] MEDS ORDERED: MoRPHine SULFATE 4 MG/ML 1 ML CARP\\VIAL IV PRN (19:35)
[2025-01-22] MEDS ORDERED: ACETAMINOPHEN 1,000 MG/100 ML VIAL IV PRN (19:35)
[2025-01-22 20:49] LABS: Creatinine Clr Calc Pharmacy 122.7 ml/min
[2025-01-22 20:57] LABS: INR 1.0 (0.9-1.1); Partial Thromboplastin Time 28 Seconds (21-31); Prothrombin Time 10.9 Seconds (9.0-12.0)
[2025-01-22] MEDS ORDERED: DEXAMETHASONE SOD INJ 4 MG/ML VIAL ONE (21:26)
[2025-01-22] MEDS ORDERED: ROCURONIUM BROMIDE 10 MG/ML 5 ML VIAL IV ONE ×2 (21:26→22:37)
[2025-01-22] MEDS ORDERED: MIDAZOLAM HCL 1 MG/ML 2ML VIAL ONE (21:26)
[2025-01-22] MEDS ORDERED: ONDANSETRON INJ 2 MG/ML 2 ML VIAL ONE (21:26)
[2025-01-22] MEDS ORDERED: PROPOFOL IV EMULSION 10 MG/ML 20 ML VIAL IV ONE (21:26)
[2025-01-22] MEDS ORDERED: LIDOCAINE 2% 2 ML VIAL/AMP(20MG/ML) INFIL ONE (21:26)
[2025-01-22] MEDS ORDERED: SUGAMMADEX SODIUM 200 MG/2 ML VIAL IV ONE ×2 (21:27→23:09)
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
[2025-01-22] MEDS ORDERED: ATROPINE SULFATE 0.1 MG/ML 10ML SYR IV PRN (22:04)
[2025-01-22] MEDS ORDERED: KETOROLAC 30 MG/ML VIAL ONE (22:25)
[2025-01-22] MEDS: PIPERACILLIN/TAZOBACTAM 4.5 GM/100 ML BAG IV SCH (22:43)
[2025-01-22] MEDS: BUPIVACAINE/EPINEPHRINE 0.5% MPF 1:200,000 30 ML VIAL ONE (23:03)
--- NOTE | 2025-01-22 23:19 | Operative Report ---
PG Post Operative Report Pre & Post Diagnosis Operation Date: 01/22/25 22:00 Pre-Op Diagnosis: Appendicitis Post-Op Diagnosis: Appendicitis I identified the patient and participated in the time-out.: Yes Procedure Operation Date: 01/22/25 22:00 Actual Procedures p Laparoscopic Appendectomy(Not Applicable) - Radha Tran DO Surgeon Radha Tran DO Mental Health Clinician MARIMAR Cardenas Estimated Blood Loss 1 Findings See Below Acute appendicitis Specimens Appendix Anesthesia Type General Complications No immediate complications Indications Pt presented to an outside institution with CT proven acute appendicitis and was transferred here for further care Description of Procedure The patient was brought to the operating room and placed on the operating room table in supine position. He was connected to cardiac and oxygen monitoring, supplemental O2 was provided and SCDs were applied to bilateral lower extremities. The patient was administered general anesthesia and a secure airway was established. A Gunn catheter was inserted. The abdomen was prepped and draped in typical sterile fashion and a timeout was conducted. Local anesthetic was used anesthetize the skin and subcutaneous tissues prior to making all incisions and all incisions were made with a 11 blade. Intra-abdominal access was gained using a Veress needle at the supraumbilical fold and this was confirmed with saline drop test. CO2 insufflation was initiated and pneumoperitoneum was established local pressure 15 mmHg. Once this pressure was reached, 5 mm laparoscope was used to insert a 5 mm trocar under direct visualization. Under direct visualization, an additional 12 mm trocar was inserted the left lower quadrant and a 5 mm trocar at the suprapubic just lateral to the midline. There were midline adhesions at the lower abdomen extending towards the pelvis from the previous surgical incision and heavy scar. There was no noted injury to bowel during the insertion of the trocars. The OR table was positioned in Trendelenburg and left side down. The cecum was mobilized to identify the appendix in its usual anatomic location. The appendix was thickened and enlarged indicative of acute appendicitis. There was no evidence for perforation or abscess. The appendix was grasped and a window was made between the mesoappendix and the base of the appendix at the cecum. The mesoappendix and appendiceal artery were ligated and transected using a LigaSure energy device. The appendix was stapled away from the base of the cecum using a 45 mm purple loaded Endo TAMIKA stapler. Excess discharge clips were suctioned away. Small amount of bleeding occurred and stopped on its own. This was suctioned away. The pelvis was inspected for fluid. There was very minimal scant fluid in the pelvis and this was suctioned away. The OR table was returned to the neutral position. The pelvis and right upper quadrant were evaluated again for fluid. There was no fluid. The staple line was checked again and hemostasis was adequate. The appendix was placed in an Endo Catch bag and removed from the left lower quadrant incision site. The appendix was then placed in a label container sent to pathology for further analysis. The instruments were removed. CO2 insufflation was discontinued and excess pneumoperitoneum was evacuated. The trocars were removed. The fascia at the left lower quadrant incision was closed using 0 Vicryl suture. Additional local anesthetic was used at each incision site and the subcutaneous tissues. The skin was approximated using 4-0 Vicryl suture. The abdomen is wiped clean with a saline soaked lap pad and dried. The incisions were further sealed with Dermabond. The Gunn catheter was removed. The patient was awakened from anesthesia, the secure airway was removed and he is transferred to recovery in stable condition. He tolerated the procedure well. I attest to the content of the Intraoperative Record and any orders documented therein. Any exceptions are noted below.
--- NOTE | 2025-01-22 23:59 | Anesthesiology Progress Note ---
Date of Service January 22, 2025 Anesthesia Post Procedure Vital Signs Vital Signs: Temp Pulse Pulse Resp BP BP Pulse Ox 01/22/25 23:55 37.3 C 87 18 117/62 95 01/22/25 23:45 84 16 113/68 95 01/22/25 23:35 90 18 117/66 95 01/22/25 23:28 36.8 C 87 16 111/63 95 01/22/25 20:55 36.9 C 84 16 116/70 98 01/22/25 18:33 36.7 C 92 H 16 116/71 97 O2 Del Method O2 Flow Rate 01/22/25 23:55 Nasal Cannula 2 01/22/25 23:45 Oxymask 2 01/22/25 23:35 Oxymask 4 01/22/25 23:28 Oxymask 4 01/22/25 20:55 Room Air 01/22/25 18:33 Room Air Transfer of Care Handoff Completed per policy Notes Mental Status: alert / awake / arousable Patient Amnestic to Procedure: Yes Nausea / Vomiting: adequately controlled Pain: adequately controlled Airway Patency, RR, SpO2: stable & adequate BP & HR: stable & adequate Hydration State: stable & adequate Anesthetic Complications: no major complications apparent and Pt Satisfied with anesthetic care
[2025-01-23 02:42] VITALS: RESP 18
[2025-01-23 06:20] LABS: Hematocrit (blood only) 43.2 % (42.0-52.0); Hemoglobin 15.1 g/dL (14.0-18.0); Mean Corpuscular Hemoglobin 30.1 pg (25.0-34.0); Mean Corpuscular Volume 86.2 fL (80.0-100.0); Platelet Count 210 K/uL (130-400); RDW Standard Deviation 41.7 fL (36.4-46.3); Red Blood Count 5.01 M/uL (4.70-6.10); White Blood Count 8.98 K/ul (4.8-10.8)
[2025-01-23 06:40] LABS: Immature Granulocytes # (auto) 0.04 K/uL (0.01-0.20); Immature Granulocytes % (auto) 0.4 %; RBC Morphology Unremarkable
[2025-01-23 06:43] LABS: Anion Gap 7.0 (3-11); Blood Urea Nitrogen 13.0 mg/dl (6-23); Calcium 8.2 mg/dl (8.6-10.3); Carbon Dioxide 23.0 mmol/L (21-32); Chloride 110.0 mmol/L (98-107); Creatinine Clr Calc Pharmacy 107.4 ml/min; Glucose 137.0 mg/dl (70-99(Fasting)); Potassium 4.5 mmol/L (3.5-5.1); Sodium 140.0 mmol/L (136-145)
[2025-01-23 07:54] VITALS: BP 106/65; PULSE 78; TEMP 98.1; O2SAT 96
--- NOTE | 2025-01-23 16:48 | Discharge Summary ---
Date of Service January 23, 2025 Admission HPI Per Admitting Provider This is a 34-year-old male who presented to the emergency department at [facility] earlier today secondary to abdominal pain. Patient notes that the pain began in the early afternoon on 01/22/2025 and was periumbilical in nature with some radiation to right lower quadrant. Had multiple episodes of nausea and vomiting but did not have any fevers, shakes, or chills. Patient notes he has never had any abdominal surgeries in the past. At the [facility] facility he had a CT scan abdomen pelvis that showed his appendix was thick-walled and dilated measuring 1.6 cm. It was fluid-filled with tissue stranding suggestive of acute appendicitis. He was also noted to have 2 distal ureteral kidney stones on the left measuring 8 and 7 mm with some left hydronephrosis. A CBC revealed white blood cell count was elevated 13.7. Hemoglobin and hematocrit were 17.7 and 50.2. Platelet count 226,000. Chemistry profile showed sodium and potassium are 135 and 4.2 respectively. BUN and creatinine were 10 and 1.0. He was tested for influenza A and B which were negative he was also tested for COVID which was negative. At the time my interview he was resting comfortably in bed he was in no distress. Concerning past medical history the patient says that his only past medical problem is kidney stones for which she has had cystoscopy in the past Concerning past surgical/procedural history the patient has only had cystoscopies for kidney stones Concerning social history he uses smokeless tobacco Admission Exam Per Admitting Provider Constitutional: WD/WN, vitals as above Eyes: no conjunctival abnormality ENMT: Ears: no hearing impairment and no external ear abnormality Mouth: no oropharynx abnormality Neck: trachea midline Respiratory: normal respiratory effort; no respiratory distress and no labored breathing Cardiovascular: Rate/Rhythm: regular rate and regular rhythm Gastrointestinal (Abdomen): Abdomen is mildly distended. It is overall soft without rigidity. He does not have any rebound tenderness or guarding. He does have pain with palpation of the periumbilical and the right lower quadrant of McBurney's point. Musculoskeletal: No calf tenderness Skin: no rashes Neurologic: moves all extremities Psychiatric: A+Ox3, euthymic affect Principal Diagnosis acute appendicitis Discharge Exam Gen: Awake and alert, resting comfortably in bed in NAD CV: RRR PULM: non-labored breathing Abd: Abd soft, non-tender, non-distended. Laparoscopic incisions well- approximated with skin glue in place, no surrounding erythema, warmth, swelling, or increased tenderness to palpation. ext: no edema to bilateral lower ext, SCDs in place, non-tender, feet warm and well perfused Discharge Data Allergies Allergy/AdvReac Type Severity Reaction Status Date / Time No Known Allergies Allergy Unverified 06/11/22 11:26 Procedures Performed Operation Date: 01/22/25 22:00 Actual Procedures p Laparoscopic Appendectomy(Not Applicable) - Radha Tran DO Hospital Course (1) Appendicitis: Plan Patient was admitted to the surgical service with plans to proceed to the operating room for a laparoscopic appendectomy. Please see dictated operative note for detailed description of the procedure. Briefly, the appendectomy was uneventful and the patient was extubated at the completion of the procedure and transferred to the medical/surgical floor for recovery. Overnight, he did very well, had minimal pain, was up and ambulating and had no nausea or vomiting. Upon discharge, he was tolerating a regular diet without any nausea or vomiting, abdominal pain was well-controlled with nonnarcotic pain medication, and he re mained afebrile and hemodynamically stable. He was felt to be stable for discharge home. Total Time Total Time Spent Total Time Spent (In Minutes): 30 Discharge Plan Discharge Items Patient Disposition: Home - Self-Care Reason For Visit: APPY Discharge Diagnosis: acute appendicitis now s/p laparoscopic appendectomy Condition on Discharge: Good Activity: Per Instructions section Lifting: No more than 10 pounds Non-emergency contact: Primary Care Provider and Surgeon Call non-emergency contact if: you have any medication questions, your symptoms worsen, your pain is not controlled, you have a fever, your temperature is above 101.5 and your wound has increased redness Follow-up/Referrals: Radha Tran DO [Physician] - (follow up in 2 weeks for post-op check, please call to make an appointment) PCPDAVID [Primary Care Provider] - Diet: Regular Addtl Attending Provider Instructions: SPECIAL CARE INSTRUCTIONS: * You have skin glue over your incisions called dermabond. you may shower with this on. It will tend to dissolve and fall off within a couple weeks. Do not pick at the skin glue * You may shower 01/24/2025 . NO soaking in pools or baths for 2 weeks * No lifting greater than 10lbs. No strenuous exercise until cleared by surgeon. Light walking is accepted. * No driving while taking narcotic pain medication; wait at least 3 days * No drinking alcohol while taking narcotic pain medication * May use Ibuprofen/Tylenol over the counter for pain as tolerated. Do not exceed 3grams of Tylenol per 24 hours * Expect some swelling and bruising. * Diet- you may resume your regular diet Call your doctor if: * Temperature above 101 degrees, nausea/vomiting, fever/chills * Pain not relieved by pain medicine ordered * There is increased drainage or redness from any incision * You have any unanswered questions or concerns [phone]. FOLLOW UP VISIT: If not already scheduled, please call the office for a follow-up visit. Office Pending Studies at Discharge: Yes Studies:: surgical pathology report Stand-Alone Forms: My [facility], Work/School Release, Smoking Cessation Medications and DC Order Prescriptions: New oxycodone 5 mg tablet 5 mg PO Q4H PRN (Reason: pain) Qty: 14 0RF Continued Mucinex Max 1 tab PO DIRECTED PRN (Reason: .flu symptoms) cyanocobalamin (vitamin B-12) 500 mcg Tablet 1,000 mcg PO QAM Qty: 30 0RF Discontinued cefdinir 300 mg Capsule 300 mg PO BID Qty: 10 0RF Discharge Orders: Discharge Order (Routine); Ordered 01/23/25 Ordered By: Harsha Mcmillan/Other Patient Handouts: After an Appendectomy, Appendectomy Lap Dc Admission Data Admit Date/Time: 01/22/25 18:30 Attending Provider: Radha Tran Admit Provider: Radha Tran Primary Care Provider: PCP,NO Other Interventions: Discharge Summary Assessment (RN) Last Done: 01/23/25 11:06 Coding Level of Care Code 32312 IN/OBS DISCH 30 MIN/LESS Diagnoses Appendicitis K37
== END 2025-01-23 11:45 | disposition home or self-care (01) | DRG 398 ==
LOC: 3N 18:30